=== PATIENT | male | born 1970 | race Caucasian/White ===

== ENCOUNTER 2018-10-30 12:37 | Emergency (ER) | payer OTHER ==
[2018-10-30 12:47] VITALS: TEMP 98.3
[2018-10-30] MEDS ORDERED: ceFAZolin 1,000 MG VIAL (IM USE) IM STA (12:58)
[2018-10-30] MEDS ORDERED: LIDOCAINE 1% INJ 10MG/ML (20 ML MDV) SQ STA (12:58)
[2018-10-30] MEDS ORDERED: WATER FOR IRRIG, STERILE 1,000 ML BTL IRRIGATION ONE (12:58)
--- NOTE | 2018-10-30 13:02 | ED ---
General Adult HPI - General Chief complaint: Wound/Laceration Stated complaint: laceration on rt leg Time Seen by Provider: 10/30/18 12:49 Source: patient, RN notes reviewed, old records reviewed Mode of arrival: ambulatory Limitations: no limitations - History of Present Illness Initial comments: 48-year-old male patient presents ED chief complaint of laceration to right tibia/fibular region. Patient reports that he was operating a driving a lawnmower when started spinning, patient reports that when he went to go grab it the deck of the lawnmower caused lacerations to his anterior tibia/fibular region. Patient reports that he is ambulatory without difficulty. Patient states his tetanus is up-to-date within the last 5 years. Patient denies any other complaints. Systemic: Pt denies fatigue, fever/chills, rash. Pt denies weakness, night sweats, weight loss. Neuro: Pt denies headache, visual disturbances, syncope or pre-syncope. HEENT: Pt denies ocular discharge or irritation, otalgia, rhinorrhea, pharyngitis or notable lymphadenopathy. Cardiopulmonary: Pt denies chest pain, SOB, heart palpitations, dyspnea on exertion. Abdominal/GI: Pt denies abdominal pain, n/v/d. : Pt denies dysuria, burning w/ urination, frequency/urgency. Denies new onset urinary or bowel incontinence. MSK: Pt denies myalgia, loss of strength or function in extremities. Neuro: Pt denies new onset weakness, paresthesias. - Related Data Previous Rx's Medication Instructions Recorded Cephalexin [Keflex] 500 mg PO Q6HR 10 Days #40 cap 10/30/18 Allergies Allergy/AdvReac Type Severity Reaction Status Date / Time No Known Allergies Allergy Verified 10/30/18 13:52 Review of Systems ROS Statement: Those systems with pertinent positive or pertinent negative responses have been documented in the HPI. ROS Other: All systems not noted in ROS Statement are negative. Past Medical History Past Medical History: No Reported History History of Any Multi-Drug Resistant Organisms: None Reported Past Surgical History: Orthopedic Surgery Past Psychological History: No Psychological Hx Reported Smoking Status: Never smoker Past Alcohol Use History: Occasional Past Drug Use History: None Reported General Exam - General Exam Comments Initial Comments: Constitutional: NAD, AOX3, Pt has pleasant affect. HEENT: NC/AT, trachea midline, neck supple, no lymphadenopathy. Posterior pharynx non erythematous, without exudates. External ears appear normal, without discharge. Mucous membranes moist. Eyes PERRLA, EOM intact. There is no scleral icterus. No pallor noted. Cardiopulmonary: RRR, no murmurs, rubs or gallops, no JVD noted. Lungs CTAB in anterior and posterior horan. No peripheral edema. Abdominal exam: Abdomen soft and non-distended. Abdomen non-tender to palpation in all 4 quadrants. Bowel sounds active in LLQ. No hepatosplenomegaly. No ecchymosis Neuro: CN II-XII grossly intact. No nuchal rigidity. No raccon eyes, no navarrete sign, no hemotympanum. No cervical spinal tenderness. MSK: 2 lacerations noted on anterior aspect of right lower extremity midshaft. First laceration approximately 8 cm stellate, second laceration 6 cm stellate. No foreign body, no bony or ligamentous involvement. Wound was vigorously irrigated with 1 L normal saline. Approximated with 25 simple interrupted sutures. Patient neurovascularly intact. No posterior calf tenderness bilaterally, homans sign negative bilaterally. Posterior tibialis and radial pulse +2 bilaterally. Sensation intact in upper and lower extremities. Full active ROM in upper and lower extremities, 5/5 stregnth. Limitations: no limitations Course Vital Signs 10/30/18 10/30/18 12:45 15:35 Temperature 98.3 F Pulse Rate 69 82 Respiratory 18 15 Rate Blood Pressure 135/82 130/82 O2 Sat by Pulse 99 98 Oximetry Procedures - Laceration Laceration #1 Consent Obtained: verbal consent Indication: laceration Site: other (anterior R tibia ) Size (cm): 8 Description: stellate Depth: simple, single layer Anesthetic Used: lidocaine 1% Anesthesia Technique: local infiltration Amount (mls): 6 Pre-repair: wound explored, irrigated extensively (1L NS ), deep structures intact Type of Sutures: nylon Size of Sutures: 5-0 Number of Sutures: 18 Technique: simple, interrupted Patient Tolerated Procedure: well, no complications Laceration #2 Consent Obtained: verbal consent Indication: laceration Site: other (anterior R tibia ) Size (cm): 6 Description: stellate Depth: simple, single layer Anesthetic Used: lidocaine 1% Anesthesia Technique: local infiltration Amount (mls): 4 Pre-repair: wound explored, irrigated extensively (1L NS ), deep structures intact Type of Sutures: nylon Size of Sutures: 5-0 Number of Sutures: 7 Technique: simple, interrupted Patient Tolerated Procedure: well, no complications Medical Decision Making - Medical Decision Making 48-year-old male patient presents ED chief complaint of laceration to right tibia/fibular region. Patient reports that he was operating a driving a lawnmower when started spinning, patient reports that when he went to go grab it the deck of the lawnmower caused lacerations to his anterior tibia/fibular region. Patient reports that he is ambulatory without difficulty. Patient states his tetanus is up-to-date within the last 5 years. Patient denies any other complaints. Patient vital signs stable, afebrile. Physical exam displayed: 2 lacerations noted on anterior aspect of right lower extremity midshaft. First laceration approximately 8 cm stellate, second laceration 6 cm stellate. No foreign body, no bony or ligamentous involvement. Wound was vigorously irrigated with 1 L normal saline. Approximated with 25 simple interrupted sutures. Patient neurovascularly intact. Plain film of tibia/f ibula did not display acute process. Patient discharged with strict return precautions for return of infection. Patient also given orthopedic referral. Patient administered 1 g Kefzol here, was discharged with Keflex. Case discussed and patient seen by Dr. rabago. Disposition Clinical Impression: Laceration Disposition: HOME SELF-CARE Condition: Stable Instructions (If sedation given, give patient instructions): Laceration (ED) Additional Instructions: Patient to adhere to previously discussed treatment plan and will take medication(s) as directed. Patient to follow up with PCP in 1-2 days. Patient to return to ED if symptoms do not improve. Please return for suture removal: Hand: 7-10 days Face: 5 days Chest/abdomen: 12-14 days Extremities: 7-10 days Scalp: 7 days Eyebrow: 5-7 days Foot/sole: 12-14 days Please monitor for signs and symptoms of infection including: redness, warmth, drainage, discharge. Please return to ED if these signs or symptoms occur, new signs or symptoms develop or if condition worsens in anyway. Prescriptions: Cephalexin [Keflex] 500 mg PO Q6HR 10 Days #40 cap Is patient prescribed a controlled substance at d/c from ED?: No Referrals: None,Stated [Primary Care Provider] - 1-2 days Petrocelli,Horacio A, DO [Medical Doctor] - 1-2 days
[2018-10-30] MEDS ORDERED: CEPHALEXIN 500MG STARTER PACK 4 CAP BTL PO STA (13:05)
--- NOTE | 2018-10-30 13:26 | XR ---
EXAMINATION TYPE: XR tibia fibula RT DATE OF EXAM: 10/30/2018 COMPARISON: None HISTORY: Pain laceration TECHNIQUE: 2 view right tibia and fibula FINDINGS: No acute fractures or dislocations are evident. No osseous abnormality is evident. No radio paque foreign body is evident. Soft tissue laceration is not identified. IMPRESSION: 1. Normal right tibia and fibula
[2018-10-30] MEDS ORDERED: DIPH,PERTUS(ACELL)TETVAC-LF 0.5 ML VIAL IM ONE (14:01)
[2018-10-30 15:38] VITALS: BP 130/82; PULSE 82; RESP 15
== END 2018-10-30 15:35 | disposition home or self-care (01) ==
LOC: EC 12:37
DX: S81.811A Laceration without foreign body, right lower leg, initial encounter (principal); Z23 Encounter for immunization; W28.XXXA Contact with powered lawn mower, initial encounter; Y93.89 Activity, other specified; Y92.89 Other specified places as the place of occurrence of the external cause
CPT/HCPCS: 73590; 90715; 99283; 12005; 96372; 90471; J0690; J2001